=== PATIENT | male | born 1965 | race Two or more races ===

== ENCOUNTER 2016-07-29 00:42 | Emergency (ER) | payer OTHER ==
[~2016-07-29] VITALS: Ht 175.3 cm; Wt 74.8 kg
[2016-07-29] MEDS ORDERED: FLUORESCEIN SODIUM OPHTH 1 EA STRIP ONE (01:12)
[2016-07-29] MEDS ORDERED: TETRACAINE HCL/PF 0.5% UD 2 ML BOTTLE ONE (01:13)
[2016-07-29] MEDS ORDERED: FLUORESCEIN SODIUM OPHTH 1 EA STRIP OP ONE (01:30)
[2016-07-29] MEDS ORDERED: TETRACAINE HCL/PF 0.5% UD 2 ML BOTTLE LEFTEYE ONE (01:30)
[2016-07-29] MEDS ORDERED: HYDROCODONE/APAP 10/325MG 1 EA TABLET PO ONE (01:30)
[2016-07-29] MEDS ORDERED: HYDROCODONE/APAP 10/325MG 1 EA TABLET ONE (01:32)
[2016-07-29 02:41] VITALS: BP 139/73
== END 2016-07-29 02:41 ==
LOC: ER 00:45
DX: S00.212A Abrasion of left eyelid and periocular area, initial encounter (principal); X58.XXXA Exposure to other specified factors, initial encounter; Y92.89 Other specified places as the place of occurrence of the external cause; Y93.89 Activity, other specified; Y99.8 Other external cause status
CPT/HCPCS: 70200; 99284; A4606; Z7610